=== PATIENT | female | born 1935 | race Caucasian/White ===

== ENCOUNTER 2018-05-12 13:11 | Emergency (ER) | payer MEDICARE, OTHER ==
[2018-05-12 13:33] VITALS: BP 147/59
[2018-05-12] MEDS ORDERED: Lidocaine 1%* 5 ML VIAL INJ ONE (14:07)
--- NOTE | 2018-05-12 14:15 | UC ---
Minor Trauma HPI - HPI Summary HPI Summary: 83-year-old female presents with a superficial left hand laceration and right knee pain status post fall. States she was descending her basement stairs, went over to move a frog that had entered the stairwell, and lost her balance. She is unsure what she cut her hand on or what she struck her knee on. Stairs were concrete. She denies hitting her head, losing consciousness, any chest pain or palpitations. She has a history of fractured patella of her right knee approximately one year ago that required an ORIF. She was able to ambulate and bear weight immediately after the injury and in the department. The bleeding from her laceration was controlled at the time of exam. - History of Current Complaint Chief Complaint: UCLaceration Stated Complaint: LT HAND LAC Time Seen by Provider: 05/12/18 13:52 Hx Obtained From: Patient ?: No Onset/Duration: Sudden Onset Onset Of Pain: Post Accident Severity Initially: Mild Severity Currently: Mild Pain Intensity: 3 Mechanism Of Injury: Blunt Trauma, Fall From A Standing Position - While ascending stairs. Approximately 1-2 stairs. Aggravating Factor(s): Ambulation, Weight Bearing Associated Signs And Symptoms: Negative: Loss Of Consciousness - Allergies/Home Medications Allergies/Adverse Reactions: Allergies Allergy/AdvReac Type Severity Reaction Status Date / Time No Known Allergies Allergy Verified 05/12/18 13:25 PMH/Surg Hx/FS Hx/Imm Hx Endocrine History: Dyslipidemia Cardiovascular History: Hypertension Respiratory History: COPD GI/ History: Gastroesophageal Reflux - Surgical History Surgical History: Yes Surgery Procedure, Year, and Place: left knee 10/2012, right shoulder x 2 2003 and 2009, bladder "tied up" 2011; b/L cataracts and correction. right foot 1982 , b/l toe surgeries, Other Surgical History: ORIF right knee patellar fracture - Family History Known Family History: Positive: Other - Noncontributory - Social History Occupation: Retired Lives: Alone Alcohol Use: Occasionally Substance Use Type: None Smoking Status (MU): Never Smoked Tobacco When Did the Patient Quit Smoking/Using Tobacco: 40 year ago - Immunization History Most Recent Influenza Vaccination: 09/2015 Most Recent Tetanus Shot: UTD Review of Systems Constitutional: Negative Skin: Other - Laceration left hand, superficial abrasion right knee, bruising and superficial abrasion left medial calf Respiratory: Negative Cardiovascular: Negative Motor: Negative, Other Neurovascular: Negative Musculoskeletal: Arthralgia - Right knee pain Neurological: Negative Is Patient Immunocompromised?: No All Other Systems Reviewed And Are Negative: Yes Physical Exam Triage Information Reviewed: Yes Appearance: Well-Appearing, No Pain Distress, Well-Nourished Vital Signs: Initial Vital Signs Temp 98.3 F 05/12/18 13:28 Pulse 76 05/12/18 13:28 Resp 17 05/12/18 13:28 BP 147/59 05/12/18 13:28 Pulse Ox 98 05/12/18 13:28 Vital Signs Reviewed: Yes Neck: Positive: Supple, Nontender Respiratory: Positive: No respiratory distress Cardiovascular: Positive: Pulses Normal, Brisk Capillary Refill Musculoskeletal: Positive: Strength Intact, ROM Intact, Other: - Mild tenderness anterior knee over the proximal fibula Neurological Exam: Normal Skin: Positive: significant lesion(s) - Superficial laceration approximately 1.5 cm to the dorsal aspect of her left hand in the webspace between the thumb and index finger. Superficial abrasion with some mild erythema to the anterior right knee over the proximal tibia. Large contusion approximately 4-5 cm in diameter with superficial abrasions left medial calf. Procedures - Laceration/Wound Repair 1 Location: upper extremity - left dorsal hand to webbing between the thumb and index finger Description: Linear Anesthesia: Local, 1.0%, Lido Length, Depth and Shape: 1.5 cm superficial linear laceration Betadine Prep?: Yes Irrigated w/ Saline (ccs): 250 Laceration/Wound Explored: clean, Other - laceration was explored under a bloodless field. No foreign body, contamination, or ligamental injury was noted. Closure: Single Layer Suture Type: Nylon - 5-0 Ethilon Number of Sutures: 4 Layer Closure?: No Sterile Dressing Applied?: Yes Diagnostics - Radiology No standard instances Xray Interpretation: No Acute Changes - Small fragment deformity noted to right petela however appears old Radiology Interpretation Completed By: ED Physician, Radiologist Minor Trauma Course/Dx - Course Course Of Treatment: 83-year-old woman with a superficial laceration to her left dorsal hand, contusion related superficial abrasion to the left calf, superficial abrasion with some mild right knee pain status post fall. Laceration was repaired with 4 interrupted sutures using 5-0 Ethilon. X-ray of right knee revealed no acute fractures or dislocations. Her abrasions were cleaned and dressed. She is to return here or follow up with her PCP in 7 days for suture removal. Wound care as well as signs and symptoms of infection were reviewed with the patient. She verbalizes understanding and agrees with plan of care. - Differential Dx/Diagnosis Differential Diagnosis/HQI/PQRI: Abrasion(s), Contusion(s), Fracture, Laceration (s) Provider Diagnoses: Laceration left hand, left medial calf contusion with superficial abrasion, right knee contusion and superficial abrasion Discharge - Sign-Out/Discharge Documenting (check all that apply): Patient Departure - Discharge Plan Condition: Stable Disposition: HOME Patient Education Materials: Care For Your Stitches (DC), Laceration (DC), Abrasion (ED) Referrals: Deepthi Leo MD [Primary Care Provider] - 7 Days (for suture removal) Additional Instructions: Leave the dressing was applied in the clinic today in place for the next 24 hours. After 24 hours he may remove and wash hands and shower as normal. He should avoid submerging her hand under water to avoid contamination of the wound. Picture your cleaning the wound with soap and water at least once daily. Apply a small amount of antibiotic ointment and cover with a gauze dressing. This should be changed at least once a day or whenever the bandage becomes wet or soiled. The numbing medication was used to place your sutures today will wear off in approximately 3-4 hours. He may take an [id number] pain medication such as acetaminophen (Tylenol) according to directions as needed for pain. You will need to monitor for signs and symptoms of infection including a fever greater than 100.5 F, any increased redness, swelling, pain, or pus draining from the wound. Should any of these occur you should seek immediate medical attention. You may continue to walk and bear weight on your leg as tolerated. Apply ice to the right knee for 15-20 minutes 3-4 times a day for the next few days. Take acetaminophen as noted above as needed for pain. - Billing Disposition and Condition Condition: STABLE Disposition: Home
--- NOTE | 2018-05-12 14:30 | RAD ---
Indication: Right knee pain. 4 views of the right knee demonstrates no fracture. Joint spaces well-preserved. Degenerative changes of the patellofemoral joint is noted. There is deformity of the patella likely due to old injury. IMPRESSION: No recent fracture is noted. Probable old injury of the patella.
== END 2018-05-12 15:14 | disposition home or self-care (01) ==
LOC: UCCORT 13:11
DX: S61.412A Laceration without foreign body of left hand, initial encounter (principal); S80.812A Abrasion, left lower leg, initial encounter; S80.211A Abrasion, right knee, initial encounter; W10.9XXA Fall (on) (from) unspecified stairs and steps, initial encounter; Y93.01 Activity, walking, marching and hiking; Y92.008 Other place in unspecified non-institutional (private) residence as the place of occurrence of the external cause; I10 Essential (primary) hypertension
CPT/HCPCS: 12001; 99212; G0463